=== PATIENT | male | born 1990 | race Caucasian/White ===

== ENCOUNTER 2016-12-28 21:03 | Emergency (ER) | payer BC, OTHER ==
[2016-12-28 21:10] VITALS: BP 131/78; PULSE 107; RESP 16; TEMP 98.2
--- NOTE | 2016-12-28 22:09 | ED ---
Alcohol HPI - General Chief Complaint: Alcohol Stated Complaint: Mental Health Source: patient Mode of arrival: ambulatory Limitations: no limitations - History of Present Illness Initial Comments: Patient is a 26-year-old male who presents for evaluation for alcohol abuse. Past medical history as below. Patient states that he has a long history of alcohol abuse. Patient states that he's been drinking 30 beers daily. Has been in inpatient rehab in the past. States that he is under a lot of stress at home. He is going through a divorce. States that he's got to the point where he knows he needs to stop drinking. He called police today in efforts to get help for his drinking. He denies any suicidal or homicidal thoughts. He denies any visual or auditory hallucinations. Does admit to smoking marijuana and occasionally doing cocaine but none today. Patient is frustrated with the situation. He states that he wants to get help but feels like he is having barriers to getting help. He does have a therapist which he regularly follows up with. He is on Effexor for depression which he has been compliant with as well. He denies any other complaints at this time. Denies fever, chills, headache, changes of vision, URI symptoms, shortness of breath, cough, chest pain, nausea, vomiting, diarrhea, pain or burning with urination. Of note, the patient states that he does have a history of significant EtOH withdrawal. States that he had a seizure 2 weeks ago though the history is somewhat inconsistent. He states that he felt himself tense up and felt himself shaking but was conscious throughout. Doubt true seizure activity based on his description. His last beer was 45 minutes prior to arrival. - Related Data Home Medications Medication Instructions Recorded Confirmed Desvenlafaxine Succinate [Pristiq 25 mg PO DAILY 08/18/15 05/25/16 ER] PARoxetine [Paxil] 10 mg PO DAILY 08/18/15 05/25/16 Albuterol Inhaler [Ventolin 1 - 2 puff INHALATION Q6HR PRN 10/27/15 05/25/16 Inhaler] Dextroamphetamine/Amphetamine 30 mg PO QAM 10/27/15 05/25/16 [Adderall Xr] Fluticasone Propionate [Flovent 50 mcg IH BID 10/27/15 05/25/16 Diskus] Previous Rx's Medication Instructions Recorded Albuterol Inhaler [Ventolin Hfa 1 - 2 puff INHALATION Q4-6H PRN #1 10/27/15 Inhaler] inhaler Albuterol Nebulized [Ventolin 2.5 mg INHALATION Q4H #20 nebu 10/27/15 Nebulized] predniSONE 50 mg PO DAILY #5 tab 10/27/15 Albuterol Inhaler [Ventolin Hfa 1 - 2 puff INHALATION Q6HR #1 05/25/16 Inhaler] inhaler Azithromycin [Zithromax Z-pack] 0 mg PO DIRECTED #6 tab 05/25/16 predniSONE 50 mg PO DAILY #5 tab 05/25/16 Allergies Allergy/AdvReac Type Severity Reaction Status Date / Time Penicillins Allergy Anaphylaxis Verified 12/28/16 21:10 Review of Systems ROS Statement: Those systems with pertinent positive or pertinent negative responses have been documented in the HPI. ROS Other: All systems not noted in ROS Statement are negative. Past Medical History Past Medical History: Asthma History of Any Multi-Drug Resistant Organisms: None Reported Past Surgical History: No Surgical Hx Reported Past Psychological History: Anxiety, Depression Smoking Status: Current every day smoker Past Alcohol Use History: Abuse Past Drug Use History: Cocaine, Marijuana General Exam Limitations: no limitations General appearance: alert, in no apparent distress, other (Well-appearing. Not slurring his words.) Head exam: Present: atraumatic, normocephalic, normal inspection Eye exam: Present: normal appearance, PERRL, EOMI. Absent: scleral icterus, conjunctival injection, periorbital swelling ENT exam: Present: normal exam, mucous membranes moist Neck exam: Present: normal inspection. Absent: tenderness, meningismus, lymphadenopathy Respiratory exam: Present: normal lung sounds bilaterally. Absent: respiratory distress, wheezes, rales, rhonchi, stridor Cardiovascular Exam: Present: regular rate, normal rhythm, normal heart sounds. Absent: systolic murmur, diastolic murmur, rubs, gallop, clicks GI/Abdominal exam: Present: soft, normal bowel sounds. Absent: distended, tenderness, guarding, rebound, rigid Extremities exam: Present: normal inspection, full ROM, normal capillary refill. Absent: tenderness, pedal edema, joint swelling, calf tenderness Back exam: Present: normal inspection Neurological exam: Present: alert, oriented X3, CN II-XII intact, normal gait. Absent: altered, abnormal gait, motor sensory deficit Psychiatric exam: Present: normal affect, normal mood Skin exam: Present: warm, dry, intact, normal color. Absent: rash Course Vital Signs 12/28/16 21:04 Temperature 98.2 F Pulse Rate 107 H Respiratory 16 Rate Blood Pressure 131/78 O2 Sat by Pulse 96 Oximetry Medical Decision Making - Medical Decision Making Patient presents for evaluation for alcohol rehab. Had a lengthy discussion with the patient and his drinking habits and why he is drinking the amount he is. Admitted to significant barriers receiving care as an outpatient. Discussed that we unfortunately do not have inpatient substance abuse at our facility. Visibly frustrated. Again he denies any suicidal homicidal ideations. Discussed with his who stated that a friend is coming to pick him up. 2305: Patient's sister was in the emergency department. Refusing to take the patient home. Left the emergency department without discussing that she would not be taking him home with staff. Discussed with the patient. Would like to go home. He is alert and oriented 3. Is able to discuss the situation prior to him coming to the emergency department. He is not petition by law enforcement. He is not slurring his words. He is able to walk in a straight line and clinically does not appear intoxicated. He does have a long chronic history of alcohol abuse and an alcohol level of 0.2 is most likely low for him. I do not believe that the patient is a threat to himself at this time as he has repeatedly said that he is not suicidal. Had a lengthy discussion with the patient about his desire to get better for his son and to repair the broken relationships that he is had. States that he wants to be therefore his son for him to graduate high school and to see him through college and have a family of his own one day. We'll provide alcohol resources and inpatient rehab resources for the patient. Will return immediately if he develops any thoughts of harming himself or others. Will try to avoid alcohol the past that he can. Discussed signs and symptoms of alcohol withdrawal and when to return to emergency department for further evaluation. He will also return immediately if he has any thoughts of harming himself or others. Comfortable with discharge home and will follow-up with the resources provided. Disposition Clinical Impression: Alcoholism /alcohol abuse Disposition: HOME SELF-CARE Condition: Good Instructions: Alcohol Withdrawal (ED) Referrals: Vick Artis MD [Primary Care Provider] - 1-2 days
== END 2016-12-28 23:20 | disposition home or self-care (01) ==
LOC: EC 21:03
DX: F10.229 Alcohol dependence with intoxication, unspecified (principal); F14.90 Cocaine use, unspecified, uncomplicated; F12.90 Cannabis use, unspecified, uncomplicated; Z79.899 Other long term (current) drug therapy; Z79.51 Long term (current) use of inhaled steroids; F41.9 Anxiety disorder, unspecified; F32.9 Major depressive disorder, single episode, unspecified; F17.200 Nicotine dependence, unspecified, uncomplicated; Z88.0 Allergy status to penicillin
CPT/HCPCS: 82075; 99283

== ENCOUNTER 2020-04-17 15:56 | Emergency (ER) | payer BC ==
[2020-04-17 16:02] VITALS: TEMP 98.2
[2020-04-17] MEDS ORDERED: SODIUM CHLORIDE 0.9% 1,000 ML IV STA ×2 (16:37)
[2020-04-17] MEDS ORDERED: ONDANSETRON 4 MG/2 ML VIAL IVP STA (16:37)
[2020-04-17] MEDS ORDERED: PANTOPRAZOLE 40 MG/10 ML VIAL IVP STA (16:37)
[2020-04-17] MEDS ORDERED: HYDROmorphone 0.5 MG/0.5 ML SYRINGE IVP STA (16:37)
[2020-04-17] MEDS ORDERED: KETOROLAC 30 MG/ML 1 ML VIAL IVP STA (16:37)
--- NOTE | 2020-04-17 16:38 | ED ---
Abdominal Pain HPI - General Source: patient, RN notes reviewed, old records reviewed Mode of arrival: ambulatory Limitations: no limitations <Sandra Atwood - Last Filed: 04/20/20 16:26> <Jody White - Last Filed: 04/23/20 01:10> - General Chief Complaint: Abdominal Pain Stated Complaint: Abd pain Time Seen by Provider: 04/17/20 16:09 - History of Present Illness Initial Comments: Patient is a 29-year-old male presents to the emergency department today for right upper quadrant epigastric abdominal pain while he was at work today. Send him started rather suddenly. He denies any change in urination or bowel movements. Denies fever. Patient reports he has been told he has a low kidney. Denies any back pain associated with the symptoms. He reports he had a bowel movement this morning. (Sandra Atwood) - Related Data Home Medications Medication Instructions Recorded Confirmed Desvenlafaxine Succinate [Pristiq 25 mg PO DAILY 08/18/15 05/25/16 ER] PARoxetine [Paxil] 10 mg PO DAILY 08/18/15 05/25/16 Albuterol Inhaler (Mhu) [Ventolin 1 - 2 puff INHALATION Q6HR PRN 10/27/15 05/25/16 Inhaler] Dextroamphetamine/Amphetamine 30 mg PO QAM 10/27/15 05/25/16 [Adderall Xr] Fluticasone Propionate [Flovent 50 mcg IH BID 10/27/15 05/25/16 Diskus] Previous Rx's Medication Instructions Recorded Albuterol Inhaler (Mhu) [Ventolin 1 - 2 puff INHALATION Q4-6H PRN #1 10/27/15 Hfa Inhaler (Mhu)] inhaler Albuterol Nebulized [Ventolin 2.5 mg INHALATION Q4H #20 nebu 10/27/15 Nebulized] predniSONE 50 mg PO DAILY #5 tab 10/27/15 Albuterol Inhaler (Mhu) [Ventolin 1 - 2 puff INHALATION Q6HR #1 05/25/16 Hfa Inhaler (Mhu)] inhaler Azithromycin [Zithromax Z-pack] 0 mg PO DIRECTED #6 tab 05/25/16 predniSONE 50 mg PO DAILY #5 tab 05/25/16 Polyethylene Glycol 3350 [Miralax] 17 gm PO DAILY #527 gm 04/17/20 Allergies Allergy/AdvReac Type Severity Reaction Status Date / Time Penicillins Allergy Anaphylaxis Verified 04/17/20 16:02 Review of Systems ROS Other: All systems not noted in ROS Statement are negative. <Sandra Atwood - Last Filed: 04/20/20 16:26> ROS Other: All systems not noted in ROS Statement are negative. <EsaeliseoJody Ren - Last Filed: 04/23/20 01:10> ROS Statement: Those systems with pertinent positive or pertinent negative responses have been documented in the HPI. Past Medical History Past Medical History: Asthma History of Any Multi-Drug Resistant Organisms: None Reported Past Surgical History: No Surgical Hx Reported Past Psychological History: Anxiety, Depression Smoking Status: Current every day smoker Past Alcohol Use History: Abuse, Daily Past Drug Use History: Cocaine, Marijuana <Sandra Atwood - Last Filed: 04/20/20 16:26> General Exam Limitations: no limitations Head exam: Present: atraumatic, normocephalic, normal inspection Eye exam: Present: normal appearance, PERRL, EOMI. Absent: scleral icterus, conjunctival injection, periorbital swelling ENT exam: Present: normal exam, mucous membranes moist Neck exam: Present: normal inspection. Absent: tenderness, meningismus, lymphadenopathy Respiratory exam: Present: normal lung sounds bilaterally. Absent: respiratory distress, wheezes, rales, rhonchi, stridor Cardiovascular Exam: Present: regular rate, normal rhythm, normal heart sounds. Absent: systolic murmur, diastolic murmur, rubs, gallop, clicks GI/Abdominal exam: Present: soft, tenderness (RUQ tenderness and epigastric and lower tenderness), normal bowel sounds. Absent: distended, guarding, rebound, rigid Extremities exam: Present: normal inspection, full ROM, normal capillary refill. Absent: tenderness, pedal edema, joint swelling, calf tenderness Back exam: Present: normal inspection Neurological exam: Present: alert, oriented X3, CN II-XII intact Psychiatric exam: Present: normal affect, normal mood Skin exam: Present: warm, dry, intact, normal color. Absent: rash <Sandra Atwood - Last Filed: 04/20/20 16:26> - General Exam Comments Initial Comments: 29 year old male, moderate discomfort. (Sandra Atwood) Course Vital Signs 04/17/20 04/17/20 16:00 18:38 Temperature 98.2 F Pulse Rate 82 63 Respiratory 18 20 Rate Blood Pressure 145/97 145/92 O2 Sat by Pulse 95 98 Oximetry Medical Decision Making - Lab Data Result diagrams: 04/17/20 16:31 04/17/20 16:31 - Radiology Data Radiology results: report reviewed <Sandra Atwood - Last Filed: 04/20/20 16:26> - Lab Data Result diagrams: 04/17/20 16:31 04/17/20 16:31 <Jody White - Last Filed: 04/23/20 01:10> - Medical Decision Making 29 year old male presents today for abdominal pain and nausea in RUQ during work today. LAbs were reviewed and normal, due to persistent pain CT scan completed. Showing malpositioned kidney and patient is informed of this. No signs of cholecystitis. CT shows fecacl impaction. Discussed miralax. Discussed symptoms seemed consitent with biliary colic and diet changes and surgical follow up for possible hida scan. (Sandra Atwood) I was available for consultation in the emergency department. The history and physical exam were done by the midlevel provider. [facility] I reviewed the case with the midlevel provider and based on their presentation of the patient, I agree with the assessment, medical decision making and plan of care as documented. Chart was dictated using [employer] dictation software. Attempts were made to correct any dictation errors however some typographical errors may persist. Patient was seen during a national state of emergency due to the Covid-19 pandemic. (Jody White) - Lab Data Lab Results 04/17/20 04/17/20 04/17/20 Range/Units 16:31 16:31 16:31 WBC 7.4 (3.8-10.6) k/uL RBC 5.32 (4.30-5.90) m/uL Hgb 15.8 (13.0-17.5) gm/dL Hct 47.4 (39.0-53.0) % MCV 89.2 (80.0-100.0) fL MCH 29.7 (25.0-35.0) pg MCHC 33.3 (31.0-37.0) g/dL RDW 12.9 (11.5-15.5) % Plt Count 214 (150-450) k/uL Neutrophils % 63 % Lymphocytes % 25 % Monocytes % 4 % Eosinophils % 6 % Basophils % 1 % Neutrophils # 4.7 (1.3-7.7) k/uL Lymphocytes # 1.8 (1.0-4.8) k/uL Monocytes # 0.3 (0-1.0) k/uL Eosinophils # 0.4 (0-0.7) k/uL Basophils # 0.0 (0-0.2) k/uL PT 9.9 (9.0-12.0) sec INR 0.9 (<1.2) APTT 18.2 L (22.0-30.0) sec Sodium 140 (137-145) mmol/L Potassium 4.3 (3.5-5.1) mmol/L Chloride 104 (98-107) mmol/L Carbon Dioxide 26 (22-30) mmol/L Anion Gap 10 mmol/L BUN 19 (9-20) mg/dL Creatinine 0.75 (0.66-1.25) mg/dL Est GFR (CKD-EPI)AfAm >90 (>60 ml/min/1.73 sqM) Est GFR (CKD-EPI)NonAf >90 (>60 ml/min/1.73 sqM) Glucose 97 (74-99) mg/dL Plasma Lactic Acid Antonio (0.7-2.0) mmol/L Calcium 10.2 (8.4-10.2) mg/dL Total Bilirubin 0.4 (0.2-1.3) mg/dL AST 43 (17-59) U/L ALT 59 H (4-49) U/L Alkaline Phosphatase 63 (38-126) U/L Total Protein 7.7 (6.3-8.2) g/dL Albumin 4.9 (3.5-5.0) g/dL Amylase 57 (30-110) U/L Lipase 32 (23-300) U/L Urine Color Urine Appearance (Clear) Urine pH (5.0-8.0) Ur Specific [place] (1.001-1.035) Urine Protein (Negative) Urine Glucose (UA) (Negative) Urine Ketones (Negative) Urine Blood (Negative) Urine Nitrite (Negative) Urine Bilirubin (Negative) Urine Urobilinogen (<2.0) mg/dL Ur Leukocyte Esterase (Negative) 04/17/20 04/17/20 Range/Units 16:31 17:30 WBC (3.8-10.6) k/uL RBC (4.30-5.90) m/uL Hgb (13.0-17.5) gm/dL Hct (39.0-53.0) % MCV (80.0-100.0) fL MCH (25.0-35.0) pg MCHC (31.0-37.0) g/dL RDW (11.5-15.5) % Plt Count (150-450) k/uL Neutrophils % % Lymphocytes % % Monocytes % % Eosinophils % % Basophils % % Neutrophils # (1.3-7.7) k/uL Lymphocytes # (1.0-4.8) k/uL Monocytes # (0-1.0) k/uL Eosinophils # (0-0.7) k/uL Basophils # (0-0.2) k/uL PT (9.0-12.0) sec INR (<1.2) APTT (22.0-30.0) sec Sodium (137-145) mmol/L Potassium (3.5-5.1) mmol/L Chloride (98-107) mmol/L Carbon Dioxide (22-30) mmol/L Anion Gap mmol/L BUN (9-20) mg/dL Creatinine (0.66-1.25) mg/dL Est GFR (CKD-EPI)AfAm (>60 ml/min/1.73 sqM) Est GFR (CKD-EPI)NonAf (>60 ml/min/1.73 sqM) Glucose (74-99) mg/dL Plasma Lactic Acid Antonio 0.8 (0.7-2.0) mmol/L Calcium (8.4-10.2) mg/dL Total Bilirubin (0.2-1.3) mg/dL AST (17-59) U/L ALT (4-49) U/L Alkaline Phosphatase (38-126) U/L Total Protein (6.3-8.2) g/dL Albumin (3.5-5.0) g/dL Amylase (30-110) U/L Lipase (23-300) U/L Urine Color Yellow Urine Appearance Clear (Clear) Urine pH 5.5 (5.0-8.0) Ur Specific [place] 1.025 (1.001-1.035) Urine Protein Negative (Negative) Urine Glucose (UA) Negative (Negative) Urine Ketones Negative (Negative) Urine Blood Negative (Negative) Urine Nitrite Negative (Negative) Urine Bilirubin Negative (Negative) Urine Urobilinogen <2.0 (<2.0) mg/dL Ur Leukocyte Esterase Negative (Negative) 04/17/20 17:12 EKG performed at 1643 shows normal sinus rhythm normal EKG. Ventricular rate of 71 beats were minute. Verbal is 150 ms. QRS duration is 80 ms. QT QTc is 370/402 ms. (Sandra Atwood) - Radiology Data Correlate for fecal impaction. Begin diffuse rectal wall. Additional evaluation of this area is recommended. Normal appendix. 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 (Sandra Atwood) Disposition Is patient prescribed a controlled substance at d/c from ED?: No Time of Disposition: 18:22 <Sandra Atwood - Last Filed: 04/20/20 16:26> <Jody White - Last Filed: 04/23/20 01:10> Clinical Impression: Constipation, Congenital displaced kidney, Upper abdominal pain Disposition: HOME SELF-CARE Condition: Good Instructions (If sedation given, give patient instructions): Constipation (DC), Biliary Colic (ED) Additional Instructions: Patient should double his water intake. Taking MiraLAX as well to help promote bowel movements. Recommended following up with surgeon if Persistent pain, there is some concern for possible biliary colic of symptoms. Return to the emergency department if any alarming signs or symptoms occur. Prescriptions: Polyethylene Glycol 3350 [Miralax] 17 gm PO DAILY #527 gm Referrals: Vick Artis MD [Primary Care Provider] - 1-2 days Shawnee Geronimo MD [STAFF PHYSICIAN] - 1-2 days Greg Najera MD [STAFF PHYSICIAN] - 1-2 days
[2020-04-17 16:52] LABS: Basophils % (A) 1 %; Eosinophils # (A) 0.4 k/uL (0-0.7); Eosinophils % (A) 6 %; HCT 47.4 % (39.0-53.0); HGB 15.8 gm/dL (13.0-17.5); Lymphocytes # (A) 1.8 k/uL (1.0-4.8); Lymphocytes % (A) 25 %; MCH 29.7 pg (25.0-35.0); MCHC 33.3 g/dL (31.0-37.0); MCV 89.2 fL (80.0-100.0); Mean Platelet Volume 9.1; Monocytes # (A) 0.3 k/uL (0-1.0); Monocytes % (A) 4 %; Neutrophils # (A) 4.7 k/uL (1.3-7.7); Neutrophils % (A) 63 %; Platelet Count 214 k/uL (150-450); RBC 5.32 m/uL (4.30-5.90); RDW 12.9 % (11.5-15.5); WBC 7.4 k/uL (3.8-10.6)
[2020-04-17 17:01] LABS: ALT 59 U/L (4-49); AST 43 U/L (17-59); African American GFR (CKD) >90 (>60 ml/min/1.73 sqM); Albumin 4.9 g/dL (3.5-5.0); Alkaline Phosphatase 63 U/L (38-126); Amylase 57 U/L (30-110); Anion Gap 10 mmol/L; Blood Urea Nitrogen 19 mg/dL (9-20); Calcium 10.2 mg/dL (8.4-10.2); Carbon Dioxide 26 mmol/L (22-30); Chloride 104 mmol/L (98-107); Glucose 97 mg/dL (74-99); Non-African American GFR(CKD) >90 (>60 ml/min/1.73 sqM); Potassium 4.3 mmol/L (3.5-5.1); Sodium 140 mmol/L (137-145); Total Bilirubin 0.4 mg/dL (0.2-1.3); Total Protein 7.7 g/dL (6.3-8.2)
[2020-04-17 17:09] LABS: INR 0.9 (<1.2); Prothrombin Time 9.9 sec (9.0-12.0)
[2020-04-17 17:11] LABS: Partial Thromboplastin Time 18.2 sec (22.0-30.0)
[2020-04-17 17:44] LABS: Appearance,Urine Clear (Clear); Bilirubin,Urine Negative (Negative); Blood,Urine Negative (Negative); Color,Urine Yellow; Glucose,Urine (UA) Negative (Negative); Ketones,Urine Negative (Negative); Leukocyte Esterase,Urine Negative (Negative); Nitrite,Urine Negative (Negative); PH, Urine 5.5 (5.0-8.0); Protein,Urine Negative (Negative); Specific Gravity,Urine 1.025 (1.001-1.035); Urobilinogen,Urine <2.0 mg/dL (<2.0)
--- NOTE | 2020-04-17 17:53 | CT ---
EXAMINATION TYPE: CT abdomen pelvis w con DATE OF EXAM: 04/17/2020 COMPARISON: None INDICATION: right sided abdominal pain DLP: 2204.4 mGycm, Automated exposure control for dose reduction was used. CONTRAST: 100 mL of Isovue 300. Study performed without Oral Contrast TECHNIQUE: Axial images were obtained from above the diaphragm to the pubic rami in the axial plane a t 5 mm thick sections. Reconstructed images are reviewed on the computer in the coronal plane. FINDINGS: Limited CT sections are obtained the lung bases. The lung bases are clear. CT ABDOMEN: Liver: Normal Spleen: Normal Pancreas: Normal Adrenal glands: The adrenal glands are normal. Gallbladder: Normal Kidneys: Left kidney is absent in the abdomen. It is malpositioned within the left hemipelvis. No ma sses are evident. No hydronephrosis is present. No cysts are present. Delayed images were obtained through the kidneys, which remain unremarkable. Aorta: Vascular calcification is within the aorta. Inferior vena cava: Normal. CT PELVIS: Loops of bowel within the abdomen and pelvis are normal. The rectum may have diffusely thickened wa ll. Large fecal bolus is at the rectum and distal sigmoid colon. There are loops of bowel which are incompletely distended or lack oral contrast limiting their evaluation. Appendix: Normal as visualized Urinary bladder: Decompressed. Some wall thickening is not excluded. Genitourinary structures: Prostate is normal. Osseous structures: No suspicious lytic or sclerotic lesions. IMPRESSIONS: 1. Correlate for fecal impaction. 2. Thickened diffuse rectal wall. Additional evaluation of this area is recommended. 3. Normal appendix 4. 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
[2020-04-17 18:41] VITALS: BP 145/92; PULSE 63; RESP 20
== END 2020-04-17 18:41 | disposition home or self-care (01) ==
LOC: EC 15:56
DX: K59.00 Constipation, unspecified (principal); R11.0 Nausea; J45.909 Unspecified asthma, uncomplicated; F32.9 Major depressive disorder, single episode, unspecified; F41.9 Anxiety disorder, unspecified; F17.200 Nicotine dependence, unspecified, uncomplicated; Z79.899 Other long term (current) drug therapy; Z88.0 Allergy status to penicillin; Q63.2 Ectopic kidney
CPT/HCPCS: 36415; 93005; 80053; 82150; 83605; 83690; 85025; 85610; 85730; 81003; 74177; 99285; 96374; 96375 ×3; 96361 ×2; J2405; J1885; C9113; J1170; Q9967

== ENCOUNTER 2021-12-18 13:55 | Observation (INO) | payer BC ==
[2021-12-18 14:59] LABS: Basophils % (A) 0 %; Eosinophils # (A) 0.2 k/uL (0-0.7); Eosinophils % (A) 2 %; HCT 48.3 % (39.0-53.0); HGB 16.7 gm/dL (13.0-17.5); Lymphocytes # (A) 1.4 k/uL (1.0-4.8); Lymphocytes % (A) 19 %; MCH 31.1 pg (25.0-35.0); MCHC 34.5 g/dL (31.0-37.0); MCV 90.2 fL (80.0-100.0); Mean Platelet Volume 9.1; Monocytes # (A) 0.3 k/uL (0-1.0); Monocytes % (A) 3 %; Neutrophils # (A) 5.8 k/uL (1.3-7.7); Neutrophils % (A) 75 %; Platelet Count 256 k/uL (150-450); RBC 5.36 m/uL (4.30-5.90); RDW 13.6 % (11.5-15.5); WBC 7.8 k/uL (3.8-10.6)
[2021-12-18 15:08] LABS: Amphetamine Screen,Urine Not Detected (NotDetected); Barbiturate Screen,Urine Not Detected (NotDetected); Benzodiazepines Screen,Urine Not Detected (NotDetected); Cocaine Screen,Urine Not Detected (NotDetected); Methadone Screen, Urine Not Detected (NotDetected); Opiate Screen,Urine Not Detected (NotDetected); Oxycodone Screen, Urine Not Detected (NotDetected); Phencyclidine Screen,Urine Not Detected (NotDetected); Tricyclic Antidepressant,Urine Not Detected (NotDetected); Urn Cannabinoid Scrn Not Detected (NotDetected)
[2021-12-18 15:10] LABS: ALT 67 U/L (4-49); AST 41 U/L (17-59); Acetaminophen <10.0 ug/mL; African American GFR (CKD) >90 (>60 ml/min/1.73 sqM); Albumin 4.9 g/dL (3.5-5.0); Alcohol <10 mg/dL; Alkaline Phosphatase 62 U/L (38-126); Amylase 41 U/L (30-110); Anion Gap 15 mmol/L; Blood Urea Nitrogen 13 mg/dL (9-20); Calcium 9.9 mg/dL (8.4-10.2); Carbon Dioxide 22 mmol/L (22-30); Chloride 103 mmol/L (98-107); Glucose 103 mg/dL (74-99); Lipase 31 U/L (23-300); Non-African American GFR(CKD) >90 (>60 ml/min/1.73 sqM); Potassium 4.2 mmol/L (3.5-5.1); Salicylate <1.0 mg/dL; Sodium 140 mmol/L (137-145); Total Bilirubin 0.6 mg/dL (0.2-1.3)
--- NOTE | 2021-12-18 15:58 | ED ---
General Adult HPI - General Chief complaint: Overdose Stated complaint: abd pain Time Seen by Provider: 12/18/21 15:35 Source: patient Mode of arrival: ambulatory Limitations: no limitations - History of Present Illness Initial comments: Dictation was produced using [employer] dictation software. please excuse any grammatical, word or spelling errors. Chief Complaint: 31-year-old male presents to the emergency Department for Tylenol overdose History of Present Illness: 31-year-old male presents emergency department for Tylenol overdose. Patient states he took a handful of Tylenol yesterday at approximately 5:55 PM. He does not know the exact amount number of pills. States he was depressed because he was caught cheating on his . Today with his [id number]. Patient states he decided come today because he's been having abdominal pain. Patient also states that his urine appears to be brown he's having dark stool. Patient states the pain does not radiate. No nausea vomiting. The ROS documented in this emergency department record has been reviewed and confirmed by me. Those systems with pertinent positive or negative responses have been documented in the HPI. All other systems are other negative and/or noncontributory. PHYSICAL EXAM: General Impression: Alert and oriented x3, not in acute distress HEENT: Normocephalic atraumatic, extra-ocular movements intact, pupils equal and reactive to light bilaterally, mucous membranes moist. Cardiovascular: Heart regular rate and rhythm Chest: Able to complete full sentences, no retractions, no tachypnea Abdomen: abdomen soft, non-tender, non-distended, no organomegaly Musculoskeletal: Pulses present and equal in all extremities, no peripheral edema Motor: no focal deficits noted Neurological: CN II-XII grossly intact, no focal motor or sensory deficits noted Skin: Intact with no visualized rashes Psych: Normal affect and mood ED course: 31-year-old now presents emergency department for Tylenol overdose. Vital signs upon arrival are within acceptable limits. Patient Motrin at the bedside. Laboratory evaluation obtained. CBC Mar[place]. Metabolic panel is negative. Abdominal labs are negative. ALT slightly elevated at 67. AST and alk phos are normal. Urinalysis is negative. Tox labs are negative. Acetaminophen level is less than 10 and rest of tox labs are undetected. Patient medically cleared for EPS evaluation. Patient evaluated by EPS. According to EPS he did take taking Tylenol but is still suicidal. Patient be admitted to inpatient psych unit. Patient will sign himself in. - Related Data Home Medications Medication Instructions Recorded Confirmed Albuterol Sulfate [Albuterol 2 puff PO RT-Q6H PRN 12/18/21 12/18/21 Sulfate Hfa] Allergies Allergy/AdvReac Type Severity Reaction Status Date / Time Penicillins Allergy Anaphylaxis Verified 12/18/21 16:49 Review of Systems ROS Statement: Those systems with pertinent positive or pertinent negative responses have been documented in the HPI. ROS Other: All systems not noted in ROS Statement are negative. Past Medical History Past Medical History: Asthma History of Any Multi-Drug Resistant Organisms: None Reported Past Surgical History: No Surgical Hx Reported Past Psychological History: Anxiety, Depression Smoking Status: Never smoker Past Alcohol Use History: Abuse, Daily Past Drug Use History: None Reported, Cocaine, Marijuana General Exam Limitations: no limitations Course Vital Signs 12/18/21 12/18/21 14:30 18:00 Temperature 98.3 F Pulse Rate 89 81 Respiratory 20 18 Rate Blood Pressure 150/100 165/92 O2 Sat by Pulse 97 96 Oximetry Medical Decision Making - Lab Data Result diagrams: 12/18/21 14:52 12/18/21 14:52 Lab Results 12/18/21 12/18/21 12/18/21 Range/Units 14:52 14:52 14:52 WBC 7.8 (3.8-10.6) k/uL RBC 5.36 (4.30-5.90) m/uL Hgb 16.7 (13.0-17.5) gm/dL Hct 48.3 (39.0-53.0) % MCV 90.2 (80.0-100.0) fL MCH 31.1 (25.0-35.0) pg MCHC 34.5 (31.0-37.0) g/dL RDW 13.6 (11.5-15.5) % Plt Count 256 (150-450) k/uL MPV 9.1 Neutrophils % 75 % Lymphocytes % 19 % Monocytes % 3 % Eosinophils % 2 % Basophils % 0 % Neutrophils # 5.8 (1.3-7.7) k/uL Lymphocytes # 1.4 (1.0-4.8) k/uL Monocytes # 0.3 (0-1.0) k/uL Eosinophils # 0.2 (0-0.7) k/uL Basophils # 0.0 (0-0.2) k/uL PT (9.0-12.0) sec INR (<1.2) APTT (22.0-30.0) sec Sodium 140 (137-145) mmol/L Potassium 4.2 (3.5-5.1) mmol/L Chloride 103 (98-107) mmol/L Carbon Dioxide 22 (22-30) mmol/L Anion Gap 15 mmol/L BUN 13 (9-20) mg/dL Creatinine 0.84 (0.66-1.25) mg/dL Est GFR (CKD-EPI)AfAm >90 (>60 ml/min/1.73 sqM) Est GFR (CKD-EPI)NonAf >90 (>60 ml/min/1.73 sqM) Glucose 103 H (74-99) mg/dL Osmolality 288 (280-301) mosm/kg Plasma Lactic Acid Antonio (0.7-2.0) mmol/L Calcium 9.9 (8.4-10.2) mg/dL Total Bilirubin 0.6 (0.2-1.3) mg/dL AST 41 (17-59) U/L ALT 67 H (4-49) U/L Alkaline Phosphatase 62 (38-126) U/L Total Protein 8.0 (6.3-8.2) g/dL Albumin 4.9 (3.5-5.0) g/dL Amylase 41 (30-110) U/L Lipase 31 (23-300) U/L Urine Color Urine Appearance (Clear) Urine pH (5.0-8.0) Ur Specific [place] (1.001-1.035) Urine Protein (Negative) Urine Glucose (UA) (Negative) Urine Ketones (Negative) Urine Blood (Negative) Urine Nitrite (Negative) Urine Bilirubin (Negative) Urine Urobilinogen (<2.0) mg/dL Ur Leukocyte Esterase (Negative) Urine RBC (0-5) /hpf Urine WBC (0-5) /hpf Urine Mucus (None) /hpf Salicylates <1.0 mg/dL Urine Opiates Screen Not Detected (NotDetected) Ur Oxycodone Screen Not Detected (NotDetected) Urine Methadone Screen Not Detected (NotDetected) Ur Propoxyphene Screen Not Detected (NotDetected) Acetaminophen <10.0 ug/mL Ur Barbiturates Screen Not Detected (NotDetected) U Tricyclic Antidepress Not Detected (NotDetected) Ur Phencyclidine Scrn Not Detected (NotDetected) Ur Amphetamines Screen Not Detected (NotDetected) U Methamphetamines Scrn Not Detected (NotDetected) U Benzodiazepines Scrn Not Detected (NotDetected) Urine Cocaine Screen Not Detected (NotDetected) U Marijuana (THC) Screen Not Detected (NotDetected) Serum Alcohol <10 mg/dL 12/18/21 12/18/21 12/18/21 Range/Units 14:52 15:54 15:54 WBC (3.8-10.6) k/uL RBC (4.30-5.90) m/uL Hgb (13.0-17.5) gm/dL Hct (39.0-53.0) % MCV (80.0-100.0) fL MCH (25.0-35.0) pg MCHC (31.0-37.0) g/dL RDW (11.5-15.5) % Plt Count (150-450) k/uL MPV Neutrophils % % Lymphocytes % % Monocytes % % Eosinophils % % Basophils % % Neutrophils # (1.3-7.7) k/uL Lymphocytes # (1.0-4.8) k/uL Monocytes # (0-1.0) k/uL Eosinophils # (0-0.7) k/uL Basophils # (0-0.2) k/uL PT 11.0 (9.0-12.0) sec INR 1.0 (<1.2) APTT 20.2 L (22.0-30.0) sec Sodium (137-145) mmol/L Potassium (3.5-5.1) mmol/L Chloride (98-107) mmol/L Carbon Dioxide (22-30) mmol/L Anion Gap mmol/L BUN (9-20) mg/dL Creatinine (0.66-1.25) mg/dL Est GFR (CKD-EPI)AfAm (>60 ml/min/1.73 sqM) Est GFR (CKD-EPI)NonAf (>60 ml/min/1.73 sqM) Glucose (74-99) mg/dL Osmolality (280-301) mosm/kg Plasma Lactic Acid Antonio 0.9 (0.7-2.0) mmol/L Calcium (8.4-10.2) mg/dL Total Bilirubin (0.2-1.3) mg/dL AST (17-59) U/L ALT (4-49) U/L Alkaline Phosphatase (38-126) U/L Total Protein (6.3-8.2) g/dL Albumin (3.5-5.0) g/dL Amylase (30-110) U/L Lipase (23-300) U/L Urine Color Yellow Urine Appearance Clear (Clear) Urine pH 6.0 (5.0-8.0) Ur Specific [place] 1.028 (1.001-1.035) Urine Protein 3+ H (Negative) Urine Glucose (UA) Negative (Negative) Urine Ketones Negative (Negative) Urine Blood Negative (Negative) Urine Nitrite Negative (Negative) Urine Bilirubin Negative (Negative) Urine Urobilinogen <2.0 (<2.0) mg/dL Ur Leukocyte Esterase Negative (Negative) Urine RBC 2 (0-5) /hpf Urine WBC 1 (0-5) /hpf Urine Mucus Rare H (None) /hpf Salicylates mg/dL Urine Opiates Screen (NotDetected) Ur Oxycodone Screen (NotDetected) Urine Methadone Screen (NotDetected) Ur Propoxyphene Screen (NotDetected) Acetaminophen ug/mL Ur Barbiturates Screen (NotDetected) U Tricyclic Antidepress (NotDetected) Ur Phencyclidine Scrn (NotDetected) Ur Amphetamines Screen (NotDetected) U Methamphetamines Scrn (NotDetected) U Benzodiazepines Scrn (NotDetected) Urine Cocaine Screen (NotDetected) U Marijuana (THC) Screen (NotDetected) Serum Alcohol mg/dL Disposition Clinical Impression: Suicidal ideation Disposition: ADMITTED IP TO THIS HOSP Condition: Fair Referrals: Vick Artis MD [Primary Care Provider] - 1-2 days
[2021-12-18 16:01] LABS: Appearance,Urine Clear (Clear); Bilirubin,Urine Negative (Negative); Blood,Urine Negative (Negative); Color,Urine Yellow; Glucose,Urine (UA) Negative (Negative); Ketones,Urine Negative (Negative); Leukocyte Esterase,Urine Negative (Negative); Mucus,Urine Rare /hpf; Nitrite,Urine Negative (Negative); Protein,Urine 3+ (Negative); RBC,Urine 2 /hpf (0-5); Specific Gravity,Urine 1.028 (1.001-1.035); Urobilinogen,Urine <2.0 mg/dL (<2.0); WBC,Urine 1 /hpf (0-5)
[2021-12-18 16:28] LABS: Partial Thromboplastin Time 20.2 sec (22.0-30.0)
[2021-12-18] MEDS ORDERED: ONDANSETRON 4 MG TAB PO STA (17:11)
[2021-12-18] MEDS ORDERED: ALBUTEROL HFA INHALER INHALATION STA (20:29)
[2021-12-18] MEDS ORDERED: ONDANSETRON 4 MG/2 ML VIAL IVP PRN (23:42)
[2021-12-18] MEDS ORDERED: MAG HYDROX/AL HYDROX/SIMETH 30 ML CUP PO PRN (23:42)
[2021-12-18] MEDS ORDERED: NALOXONE 0.4 MG/ML 1 ML VIAL IV PRN (23:42)
[2021-12-18] MEDS ORDERED: SODIUM CHLORIDE 0.9% 1,000 ML IV SCH (23:45)
[2021-12-18] MEDS ORDERED: ACETYLCYSTEINE 6,000 MG/30 ML VIAL PO ONE (23:46)
[2021-12-19] MEDS ORDERED: ALBUTEROL HFA INHALER INHALATION PRN (01:07)
[2021-12-19] MEDS ORDERED: ACETYLCYSTEINE 6,000 MG/30 ML VIAL PO SCH (04:00)
--- NOTE | 2021-12-19 13:56 | XR ---
EXAMINATION TYPE: XR chest 1V portable DATE OF EXAM: 12/19/2021 Comparison: 05/25/2016 Clinical History: 31-year-old male cough, covid Findings: Low lung volumes and crowded vascular markings. There is mild interstitial prominence that could be s econdary to vascular crowding. Heart size likely accentuated by the low lung volumes. Pulmonary vascu lature within normal limits. Hazy peripheral densities related to overlying soft tissue and portable technique. No melquiades consolidation or pleural effusion. Impression: Exam limited by portable technique, body habitus, and hypoventilatory changes. No definite acute proc ess allowing for these limitations.
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
--- NOTE | 2021-12-19 14:11 | HP ---
HISTORY AND PHYSICAL DATE OF SERVICE: 12/19/2021 CHIEF COMPLAINT: Overdose. HISTORY OF PRESENT ILLNESS: This 31-year-old gentleman with a past medical history of asthma was admitted with Tylenol overdosage. The patient took a bunch of Tylenol; according to him, a handful. The patient also is COVID-19 positive. There is no history of any fever, rigors or chills. No history of headache, loss of consciousness, seizures. PAST MEDICAL HISTORY: Asthma, anxiety, depression. MEDICATIONS: Albuterol. ALLERGIES: PENICILLIN. FAMILY HISTORY: No history of heart disease or strokes in the family. SOCIAL HISTORY: History of ETOH, cocaine, marijuana. REVIEW OF SYSTEMS: Fourteen-point review of systems negative except as mentioned earlier. PHYSICAL EXAMINATION: Pulse 66, blood pressure 144/82, respirations 16. HEENT: Conjunctivae normal. Oral mucosa moist. CARDIOVASCULAR: S1, S2 muffled. RESPIRATION: Breath sounds diminished at the bases. No rhonchi. No crackles. ABDOMEN: Soft, nontender. No mass palpable. LEGS: No edema. No swelling. NERVOUS SYSTEM: Higher functions as mentioned earlier. No focal motor or sensory deficit. SKIN: No ulcer, rash, bleeding. JOINTS: No active deforming arthropathy. LYMPHATICS: No lymph node palpable in neck, axillae or groin. LABS: ALT 67. INR is 1. ASSESSMENT: 1. Status post Tylenol overdosage. 2. COVID-19 positive. 3. Increased ALT. 4. History of asthma. RECOMMENDATIONS AND DISCUSSION: In this 31-year-old gentleman who presented after overdose, at this time I recommend psychiatric evaluation. The LFTs are showing only slightly elevated LFTs. Will repeat LFT tomorrow. Prognosis guarded. Further recommendations to follow. MMODL / IJN: [id number] / MTDD
[2021-12-19 14:24] VITALS: BP 143/83; PULSE 81; RESP 20; TEMP 98.2
[2021-12-19 14:54] LABS: ALT 47 U/L (4-49); AST 27 U/L (17-59); African American GFR (CKD) >90 (>60 ml/min/1.73 sqM); Albumin 4.2 g/dL (3.5-5.0); Albumin/Globulin Ratio 1.7; Alkaline Phosphatase 53 U/L (38-126); Anion Gap 11 mmol/L; Blood Urea Nitrogen 18 mg/dL (9-20); Calcium 9.4 mg/dL (8.4-10.2); Carbon Dioxide 25 mmol/L (22-30); Chloride 104 mmol/L (98-107); Globulin 2.5 g/dL; Glucose 112 mg/dL (74-99); Non-African American GFR(CKD) 85 (>60 ml/min/1.73 sqM); Potassium 3.8 mmol/L (3.5-5.1); Sodium 140 mmol/L (137-145); Total Bilirubin 0.5 mg/dL (0.2-1.3); Total Protein 6.7 g/dL (6.3-8.2)
[2021-12-19 14:57] LABS: Prothrombin Time 10.5 sec (9.0-12.0)
--- NOTE | 2021-12-20 15:36 | P.DS ---
Providers Date of admission: 12/19/21 00:00 Expected date of discharge: 12/19/21 Attending physician: Tawnya Espitia Consults: 12/18/21 23:43 Consult Physician Routine Consulting Provider: Clarence Meyers Reason/Comments: Overdose Do you want consulting provider notified?: Yes Primary care physician: Steff Hickman Hospital Course: Final diagnosis Status post Tylenol overdosage COVID-19 positive Increased ALT History of asthma Full code Discharge disposition Patient is being discharged in a stable condition with guarded prognosis to home. Patient will follow-up with Dr. Artis in the outpatient setting upon discharge. Patient is to also follow-up with [facility] for resources regarding counseling. Recommend repeat labs in the outpatient setting in 2-3 days as well . Total time taken is greater than 35 minutes. Hospital course This is a 31-year-old male who was recently admitted with Tylenol overdosage and was being closely monitored. Patient states he took approximately a hand full after having an argument with and was evaluated by psychiatry and patient is medically stable for discharge and does not meet inpatient criteria for psych unit and encourage the patient to follow-up with [facility] for outpatient psychiatry and counseling services. Patient was also found to be covid Positive and is having no symptoms of respiratory symptoms and is afebrile. Currently no reports of chest pain, shortness of breath, or palpitations. Patient is afebrile. No reports of nausea or vomiting and patient is tolerating diet. Patient will be discharged home today. On exam vital signs are stable. Cardio S1, S2 are muffled. Respiratory system shows diminished breath sounds at the bases with no wheezing or rhonchi noted. Abdomen is soft and obese, and nontender. Nervous system shows no focal deficits. Please refer to medication reconciliation sheet for a list of medications. The impression and plan of care has been dictated by Patricia David, nurse practitioner as directed. MD Sundeep I have performed a history and examination and MDM of this patient, discussed the same with the dictator, and agree with the dictator's assessment and plan as written ,documented as a scribe. Based on total visit time, I have performed more than 50% of the visit. Any additional findings or plans will be noted. Patient Condition at Discharge: Stable Plan - Discharge Summary Discharge Rx Participant: No New Discharge Prescriptions: New Zinc Sulfate 220 mg PO DAILY #15 capsule Ascorbic Acid [Vitamin C] 1,000 mg PO DAILY #30 tablet Continue Albuterol Sulfate [Albuterol Sulfate Hfa] 2 puff PO RT-Q6H PRN 30 Days #1 each PRN Reason: Shortness Of Breath Discharge Medication List Albuterol Sulfate [Albuterol Sulfate Hfa] 2 puff PO RT-Q6H PRN 30 Days #1 each 12/19/21 [Rx] Ascorbic Acid [Vitamin C] 1,000 mg PO DAILY #30 tablet 12/19/21 [Rx] Zinc Sulfate 220 mg PO DAILY #15 capsule 12/19/21 [Rx] Follow up Appointment(s)/Referral(s): Vick Artis MD [Primary Care Provider] - 1-2 days Patient Instructions/Handouts: Albuterol (By breathing), Zinc Sulfate (By mouth), Ascorbic Acid (By mouth), Coronavirus Disease 2019 (COVID-19), Suicide Prevention (DC), Depression Management for Older Adults (DC) Activity/Diet/Wound Care/Special Instructions: activity limited until follow up follow up with pcp on discharge follow up with [facility] outpatient continue current diet Discharge Disposition: HOME SELF-CARE
== END 2021-12-19 18:42 | disposition home or self-care (01) ==
LOC: EC 13:55 → 6NMEDSUR 12-19
PROVIDERS: ADMIT Hospitalist; ATTEND Hospitalist
DX: T39.1X2A Poisoning by 4-Aminophenol derivatives, intentional self-harm, initial encounter (principal); U07.1 COVID-19; F60.3 Borderline personality disorder; R45.851 Suicidal ideations; R10.9 Unspecified abdominal pain; R94.5 Abnormal results of liver function studies; J45.909 Unspecified asthma, uncomplicated; F32.A Depression, unspecified; F41.9 Anxiety disorder, unspecified; F17.220 Nicotine dependence, chewing tobacco, uncomplicated; F10.10 Alcohol abuse, uncomplicated; Z79.899 Other long term (current) drug therapy; Z71.41 Alcohol abuse counseling and surveillance of alcoholic; Z62.810 Personal history of physical and sexual abuse in childhood; Z80.0 Family history of malignant neoplasm of digestive organs; Z81.8 Family history of other mental and behavioral disorders
CPT/HCPCS: 82075; 99285; 36415; 94640 ×2; 83930; 80053 ×2; 82150; 83605; 83690; 85025; 85610 ×2; 85730; 81001; 80306; 80143; 80320; 87635; 80179; 71045; G0378; 93005

== ENCOUNTER 2022-01-13 12:29 | Emergency (ER) | payer BC, OTHER ==
[2022-01-13] MEDS ORDERED: HYDROmorphone 0.5 MG/0.5 ML SYRINGE IVP STA (14:34)
--- NOTE | 2022-01-13 14:37 | ED ---
General Adult HPI <Ladi Lim - Last Filed: 01/13/22 17:40> - General Source: patient, RN notes reviewed, old records reviewed Mode of arrival: ambulatory Limitations: no limitations <Jorge Garrett - Last Filed: 01/13/22 18:08> - General Chief complaint: Wound/Laceration Stated complaint: Right arm injury - [facility] Time Seen by Provider: 01/13/22 14:25 - History of Present Illness Initial comments: This is a 31-year-old male who presents emergency department stating that he had a workplace injury. Patient states his arm got caught in some rollers in the back of his right arm got caught up in some chains and caused a laceration to the back of his arm. Patient states he is up-to-date on tetanus because of a previous caught. Patient complains of elbow pain and humerus pain. Patient denies any shoulder pain. Patient denies any forearm pain patient denies any wrist pain or hand pain. Patient denies any trauma to the head or neck. (Jorge Garrett) - Related Data Previous Rx's Medication Instructions Recorded Albuterol Sulfate [Albuterol 2 puff PO RT-Q6H PRN 30 Days #1 12/19/21 Sulfate Hfa] each Ciprofloxacin HCl [Cipro] 500 mg PO Q12HR #14 tablet 01/13/22 Ibuprofen [Motrin] 600 mg PO Q6HR PRN #20 tab 01/13/22 Allergies Allergy/AdvReac Type Severity Reaction Status Date / Time Penicillins Allergy Anaphylaxis Verified 01/13/22 16:50 Review of Systems ROS Other: All systems not noted in ROS Statement are negative. <Ladi Lim - Last Filed: 01/13/22 17:40> ROS Other: All systems not noted in ROS Statement are negative. <Jorge Garrett - Last Filed: 01/13/22 18:08> ROS Statement: Those systems with pertinent positive or pertinent negative responses have been documented in the HPI. Past Medical History Past Medical History: Asthma History of Any Multi-Drug Resistant Organisms: None Reported Past Surgical History: No Surgical Hx Reported Past Psychological History: Anxiety, Depression Smoking Status: Never smoker Past Alcohol Use History: Abuse, Daily Past Drug Use History: None Reported, Cocaine, Marijuana <Jorge Garrett - Last Filed: 01/13/22 18:08> General Exam Limitations: no limitations <Jorge Garrett - Last Filed: 01/13/22 18:08> - General Exam Comments Initial Comments: GENERAL: Patient is well-developed and well-nourished. Patient is nontoxic and well- hydrated and is in mild distress. ENT: Neck is soft and supple. No significant lymphadenopathy is noted. Oropharynx is clear. Moist mucous membranes. EYES: The sclera were anicteric and conjunctiva were pink and moist. Extraocular movements were intact and pupils were equal round and reactive to light. Eyelids were unremarkable. SKIN: Medial aspect of his right arm has a laceration measuring approximately 12 cm. NEUROLOGIC: Patient is alert and oriented x3. Cranial nerves II through XII are grossly intact. Motor and sensory are also intact. Normal speech, volume and content. Symmetrical smile. MUSCULOSKELETAL: Normal extremities with adequate strength and full range of motion. Patient has exquisite tenderness of the humerus and elbow on the right. Patient has good cap refill of his fingers patient has full movement of all of his fingers wrist and elbow is just painful at the elbow. Patient also has normal sensation in his fingertips. LYMPHATICS: No significant lymphadenopathy is noted PSYCHIATRIC: Normal psychiatric evaluation. (Jorge Garrett) Course Vital Signs 01/13/22 01/13/22 12:52 15:45 Temperature 98.4 F 98 F Pulse Rate 87 106 H Respiratory 18 20 Rate Blood Pressure 129/86 125/85 O2 Sat by Pulse 97 96 Oximetry Procedures - Laceration Laceration #1 Consent Obtained: verbal consent Indication: laceration Site: upper extremity Description: linear Depth: simple, single layer Anesthetic Used: lidocaine 1% Anesthesia Technique: local infiltration Amount (mls): 10 Pre-repair: wound explored, irrigated extensively Type of Sutures: nylon Size of Sutures: 5-0 Number of Sutures: 16 Technique: simple, interrupted Patient Tolerated Procedure: well <Ladi Lim - Last Filed: 01/13/22 17:40> - Laceration Laceration #1 Size (cm): 12 <Jorge Garrett - Last Filed: 01/13/22 18:08> Medical Decision Making <Ladi Lim - Last Filed: 01/13/22 17:40> <Jorge Garrett - Last Filed: 01/13/22 18:08> - Medical Decision Making This is a 31-year-old male who presents to the emergency department after sustaining a laceration to the right upper extremity. X-ray of the elbow and humerus did not identify any fractures. The patient was sutured with 5-0 nylon and a total of 16 sutures were placed. The patient is advised to return to the emergency department in 7-10 days for suture removal. Patient advised of the risks associated with compartment syndrome, which is a concern with a crush injury. Symptoms of compartment syndrome include but are not limited to swelling, increased pain, pallor, paresthesias, pressure, and weakness. (Ladi Lim) I explained to the patient the symptoms of a compartment syndrome and told him if any of those symptoms occur to come back to the emergency department immediately (Jorge Garrett) Disposition <Ladi Lim - Last Filed: 01/13/22 17:40> Is patient prescribed a controlled substance at d/c from ED?: No Time of Disposition: 18:06 <Jorge Garrett - Last Filed: 01/13/22 18:08> Clinical Impression: Laceration of right upper extremity, Crushing injury of right upper arm Disposition: HOME SELF-CARE Instructions (If sedation given, give patient instructions): Care For Your Stitches (ED), Compartment Syndrome (DC) Additional Instructions: Sutures should be removed in 14 days Prescriptions: Ciprofloxacin HCl [Cipro] 500 mg PO Q12HR #14 tablet Ibuprofen [Motrin] 600 mg PO Q6HR PRN #20 tab PRN Reason: For pain Referrals: Sandro Berger MD [STAFF PHYSICIAN] - 01/14/22
--- NOTE | 2022-01-13 15:21 | XR ---
EXAMINATION TYPE: XR elbow complete RT DATE OF EXAM: 01/13/2022 CLINICAL HISTORY: pain TECHNIQUE: Frontal, lateral and oblique images of the right elbow are obtained. COMPARISON: None. FINDINGS: There is no acute fracture/dislocation evident of the elbow. No abnormal fat pad signs ar e seen. The overlying soft tissue appears unremarkable. IMPRESSION: There is no acute fracture or dislocation of the elbow. ICD 10 NO FRACTURE, INITIAL EVALUATION
--- NOTE | 2022-01-13 15:32 | XR ---
EXAMINATION TYPE: XR humerus RT DATE OF EXAM: 01/13/2022 CLINICAL HISTORY: pain COMPARISON: NONE TECHNIQUE: Frontal and lateral images of the right humerus are obtained. FINDINGS: There is no acute fracture/dislocation evident. The joint spaces appear within normal limi ts. The overlying soft tissue appears unremarkable. IMPRESSION: There is no acute fracture or dislocation.ICD 10 NO FRACTURE, INITIAL EVALUATION
[2022-01-13 15:48] VITALS: BP 125/85; PULSE 106; RESP 20; TEMP 98
[2022-01-13] MEDS ORDERED: CIPROFLOXACIN HCL 500 MG TAB PO STA (15:51)
[2022-01-13] MEDS ORDERED: LIDOCAINE 1% INJ 10MG/ML (20 ML MDV) SQ ONE (16:02)
[2022-01-13] MEDS ORDERED: BACITRACIN OINT 1 EACH PACKET TOPICAL ONE (17:57)
[2022-01-13] MEDS ORDERED: ACET/COD 300 MG/30 MG STARTER PACK 6 TAB BTL PO STA (18:07)
== END 2022-01-13 18:26 | disposition home or self-care (01) ==
LOC: EC 12:29
DX: S47.1XXA Crushing injury of right shoulder and upper arm, initial encounter (principal); S41.111A Laceration without foreign body of right upper arm, initial encounter; J45.909 Unspecified asthma, uncomplicated; F41.9 Anxiety disorder, unspecified; F32.A Depression, unspecified; F12.90 Cannabis use, unspecified, uncomplicated; Z88.0 Allergy status to penicillin; W23.0XXA Caught, crushed, jammed, or pinched between moving objects, initial encounter
CPT/HCPCS: 99283; 96374; 12004; 73060; 73080; J2001; J1170

== ENCOUNTER 2023-10-05 07:47 | Emergency (ER) | payer BC ==
[2023-10-05] MEDS ORDERED: IPRATROPIUM-ALBUTEROL 3 ML NEB INHALATION STA (08:02)
--- NOTE | 2023-10-05 08:04 | ED ---
General Adult HPI - General Source: patient, RN notes reviewed Mode of arrival: ambulatory Limitations: no limitations <Hugo Ross - Last Filed: 10/05/23 08:03> <Jere Traylor - Last Filed: 10/05/23 09:09> - General Stated complaint: SOB Time Seen by Provider: 10/05/23 08:03 - History of Present Illness Initial comments: 33-year-old male presents emergency Department chief complaint shortness of breath. Patient has a history of asthma. Patient states she's been having increasing shortness with the last one week. He gets very minimal relief with this is inhalers, updraft treatments. Patient states he is not having significant cough or cold-like symptoms states she has mild chest tightness. (Hugo Ross) - Related Data Previous Rx's Medication Instructions Recorded Albuterol Sulfate [Albuterol 2 puff PO RT-Q6H PRN 30 Days #1 12/19/21 Sulfate Hfa] each Ciprofloxacin HCl [Cipro] 500 mg PO Q12HR #14 tablet 01/13/22 Ibuprofen [Motrin] 600 mg PO Q6HR PRN #20 tab 01/13/22 Albuterol Inhaler [Ventolin Hfa 1 - 2 puff INHALATION Q4HR PRN #1 10/05/23 Inhaler] each Albuterol Nebulized [Ventolin 2.5 mg INHALATION Q4H #75 ml 10/05/23 Nebulized] predniSONE 50 mg PO DAILY #5 tab 10/05/23 Allergies Allergy/AdvReac Type Severity Reaction Status Date / Time Penicillins Allergy Anaphylaxis Verified 01/13/22 16:50 Review of Systems ROS Other: All systems not noted in ROS Statement are negative. <Hugo Ross - Last Filed: 10/05/23 08:03> ROS Other: All systems not noted in ROS Statement are negative. <Jere Traylor - Last Filed: 10/05/23 09:09> ROS Statement: Those systems with pertinent positive or pertinent negative responses have been documented in the HPI. Past Medical History Past Medical History: Asthma History of Any Multi-Drug Resistant Organisms: None Reported Past Surgical History: No Surgical Hx Reported Past Psychological History: Anxiety, Depression Smoking Status: Never smoker Past Alcohol Use History: Abuse, Daily Past Drug Use History: None Reported, Cocaine, Marijuana <Hugo Ross - Last Filed: 10/05/23 08:03> General Exam <Hugo Ross - Last Filed: 10/05/23 08:03> General appearance: alert, in distress (Mild respiratory) Head exam: Present: atraumatic, normocephalic Eye exam: Present: normal appearance, PERRL ENT exam: Present: normal exam Neck exam: Present: normal inspection. Absent: tenderness, meningismus Respiratory exam: Present: respiratory distress, wheezes, decreased breath sounds, prolonged expiratory Cardiovascular Exam: Present: regular rate, normal rhythm GI/Abdominal exam: Present: soft. Absent: distended, tenderness, guarding Neurological exam: Present: alert, oriented X3 Skin exam: Present: warm, dry, intact. Absent: cyanosis, diaphoretic <Jere Traylor - Last Filed: 10/05/23 09:09> - General Exam Comments Initial Comments: Visual Physical Exam Vital signs reviewed General: Well-appearing, nontoxic, no acute distress. Head: Normocephalic, atraumatic Eyes: PERRLA, EOMI ENT: Airway patent Chest: Nonlabored breathing Skin: No visual rash, normal skin tone Neuro: Alert and oriented 3 Musculoskeletal: No gross abnormalities (Hugo Ross) Course Vital Signs 10/05/23 08:12 Temperature 98.3 F Pulse Rate 88 Respiratory 18 Rate Blood Pressure 113/76 O2 Sat by Pulse 955 H Oximetry Medical Decision Making <Hugo Ross - Last Filed: 10/05/23 08:03> <Jere Traylor - Last Filed: 10/05/23 09:09> - Medical Decision Making I completed the quick note portion of this chart signed Hugo Ross PA-C (Hugo Ross) Was pt. sent in by a medical professional or institution (ASHLEY Bee, INFECTION CONTROL PRACTITIONER, urgent care, hospital, or fpc...) When possible be specific @ -No Did you speak to anyone other than the patient for history (EMS, parent, family, police, friend...)? What history was obtained from this source @ -No Did you review nursing and triage notes (agree or disagree)? Why? @ -I reviewed and agree with nursing and triage notes Were old charts reviewed (outside hosp., previous admission, EMS record, old EKG, old radiological studies, urgent care reports/EKG's, fpc records)? Report findings @ -No old charts were reviewed Differential Diagnosis (chest pain, altered mental status, abdominal pain women, abdominal pain men, vaginal bleeding, weakness, fever, dyspnea, syncope, headache, dizziness, GI bleed, back pain, seizure, CVA, palpatations, mental health, musculoskeletal)? @ -not applicable EKG interpreted by me (3pts min.). @ -As above X-rays interpreted by me (1pt min.). @ Chest x-ray: Clear, no focal pneumonia, no pneumothorax CT interpreted by me (1pt min.). @ -None done U/S interpreted by me (1pt. min.). @ -None done What testing was considered but not performed or refused? (CT, X-rays, U/S, labs)? Why? @ -None What meds were considered but not given or refused? Why? @ -None Did you discuss the management of the patient with other professionals (professionals i.e. , PA, INFECTION CONTROL PRACTITIONER, lab, RT, psych nurse, social work case manager, division traffic superintendent, teacher, control officer manager, case specialist)? Give summary @ -No Was smoking cessation discussed for >3mins.? @ -No Was critical care preformed (if so, how long)? @ -No Were there social determinants of health that impacted care today? How? (Homelessness, low income, unemployed, alcoholism, drug addiction, transportation, low edu. Level, literacy, decrease access to med. care, custodial, rehab)? @ -No Was there de-escalation of care discussed even if they declined (Discuss DNR or withdrawal of care, Hospice)? DNR status @ -No What co-morbidities impacted this encounter? (DM, HTN, Smoking, COPD, CAD, Cancer, CVA, ARF, Chemo, Hep., AIDS, mental health diagnosis, sleep apnea, morbid obesity)? @ -[History of persistent asthma Was patient admitted / discharged? Hospital course, mention meds given and route, prescriptions, significant lab abnormalities, going to OR and other pertinent info. @ -[33-year-old male with increased dyspnea, wheezing. History of asthma. 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 He has history of asthma but states lately he's had increased reliance on rescue inhaler. Undiagnosed new problem with uncertain prognosis? @ -No Drug Therapy requiring intensive monitoring for toxicity (Heparin, Nitro, Insulin, Cardizem)? @ -No Were any procedures done? @ -No Diagnosis/symptom? @ -[Asthma exacerbation Acute, or Chronic, or Acute on Chronic? @ Acute Uncomplicated (without systemic symptoms) or Complicated (systemic symptoms)? @ -[Complicated Side effects of treatment? @ -No Exacerbation, Progression, or Severe Exacerbation? @ -No Poses a threat to life or bodily function? How? (Chest pain, [place], OR, pneumonia, PE, COPD, DKA, ARF, appy, cholecystitis, CVA, Diverticulitis, Homicidal, Suicidal, threat to staff... and all critical care pts) @ -Yes, asthma (Jere Traylor) Disposition <Hugo Ross - Last Filed: 10/05/23 08:03> Is patient prescribed a controlled substance at d/c from ED?: No Time of Disposition: 09:08 <Jere Traylor - Last Filed: 10/05/23 09:09> Clinical Impression: Asthma exacerbation Disposition: HOME SELF-CARE Condition: Fair Instructions (If sedation given, give patient instructions): Asthma (ED) Prescriptions: predniSONE 50 mg PO DAILY #5 tab Albuterol Inhaler [Ventolin Hfa Inhaler] 1 - 2 puff INHALATION Q4HR PRN #1 each PRN Reason: Shortness Of Breath Albuterol Nebulized [Ventolin Nebulized] 2.5 mg INHALATION Q4H #75 ml Referrals: None,Stated [Primary Care Provider] - 1-2 days Jere Rodriguez DO [Doctor of Osteopathic Medicine] - 1-2 days
[2023-10-05 08:29] VITALS: RESP 18
--- NOTE | 2023-10-05 08:42 | XR ---
EXAMINATION TYPE: XR chest 2V DATE OF EXAM: 10/05/2023 8:27 AM CLINICAL INDICATION:Male, 33 years old with history of sob; [facility] COMPARISON: Chest radiographs from 12/19/2021. TECHNIQUE: XR chest 2V Frontal and lateral views of the chest. FINDINGS: Lungs/Pleura: There is no evidence of pleural effusion, focal consolidation, or pneumothorax. Pulmonary vascularity: Unremarkable. Heart/mediastinum: Cardiomediastinal silhouette is unremarkable. Musculoskeletal: No acute osseous pathology. Other findings: None Lines/Tubes: IMPRESSION: No acute cardiopulmonary disease/process.
[2023-10-05] MEDS ORDERED: DEXAMETHASONE SOD PHOSPHATE 10 MG/ML 1 ML VIAL IM STA (09:05)
[2023-10-05 10:27] VITALS: BP 130/82; PULSE 80; TEMP 98.1
== END 2023-10-05 10:20 | disposition home or self-care (01) ==
LOC: EC 07:47
DX: J45.901 Unspecified asthma with (acute) exacerbation (principal); F12.90 Cannabis use, unspecified, uncomplicated; F14.90 Cocaine use, unspecified, uncomplicated; Z88.0 Allergy status to penicillin
CPT/HCPCS: 99284 ×2; 94640; 71046; 96372; J1100